=== PATIENT | female | born 1950 | race Caucasian/White ===

== ENCOUNTER 2023-06-13 06:04 | Day surgery (SDC) | payer MEDICARE ==
[2023-06-13] VITALS (9 sets, daily range): BP systolic 88–115; BP diastolic 43–59; PULSE 65–77; RESP 10–18; TEMP 97.8; O2SAT 95–98
[~2023-06-13] VITALS: Ht 162.6 cm; Wt 62.5 kg
[2023-06-13] MEDS ORDERED: cefazolin 2gm/D5W 100mL 100 ML IV ONE (06:30)
[2023-06-13] MEDS ORDERED: vancomycin/NS 1 GM ADD-VANTAGE 250 ML X 1 DOSE IV ONE (06:30)
[2023-06-13] MEDS ORDERED: ASCO100031 PO (06:36)
[2023-06-13] MEDS ORDERED: LEVO125T68 (06:36)
[2023-06-13] MEDS ORDERED: CHOL500049 PO (06:36)
[2023-06-13] MEDS ORDERED: DENOSUMAB (06:36)
[2023-06-13] MEDS ORDERED: ASPI-1265 PO (06:36)
[2023-06-13] MEDS ORDERED: PSYL0.4C2 PO (06:36)
[2023-06-13] MEDS ORDERED: GLUC1CAP36 PO (06:36)
[2023-06-13] MEDS ORDERED: SUMA50TA17 (06:36)
[2023-06-13] MEDS ORDERED: CALC-1215 PO (06:36)
[2023-06-13] MEDS ORDERED: ATOR40TA72 PO (06:36)
[2023-06-13 06:58] LABS: BASOPHILS % (AUTO) 0.6 % (0-1); EOSINOPHILS # (AUTO) 0.2 X10'3 (0-0.9); EOSINOPHILS % (AUTO) 4.5 % (0-6); HEMATOCRIT 39.6 % (35.0-45.0); HEMOGLOBIN 13.2 g/dl (12.0-16.0); LYMPHOCYTES # (AUTO) 2.1 X10'3 (1.1-4.8); LYMPHOCYTES % (AUTO) 44.2 % (21-51); MEAN CORPUSCULAR HEMOGLOBIN 30.4 PG (27.0-31.0); MEAN CORPUSCULAR HGB CONC 33.4 g/dL (33.0-36.5); MEAN PLATELET VOLUME 9.2 FL (7.4-10.4); MONOCYTES # (AUTO) 0.4 X10'3 (0-0.9); MONOCYTES % (AUTO) 9.1 % (2-12); NEUTROPHILS % (AUTO) 41.6 % (42-75); PLATELET COUNT 193 X10'3 (140-440); RED BLOOD COUNT 4.35 X10'6 (4.20-5.60); RED CELL DISTRIBUTION WIDTH 14.4 % (11.5-14.5); WHITE BLOOD COUNT 4.8 X10'3 (4.5-11.0)
[2023-06-13 07:07] LABS: ALBUMIN 4.1 G/DL (3.4-5.0); ANION GAP 11 (8-16); BLOOD UREA NITROGEN 15 MG/DL (7-18); BUN/CREATININE RATIO 18.8 (10.0-20.0); CALCIUM 9.3 MG/DL (8.5-10.1); CHLORIDE 105 MMOL/L (99-107); GLUCOSE 82 MG/DL (70-104); MAGNESIUM 2.1 MG/DL (1.5-2.4); POTASSIUM 3.6 MMOL/L (3.5-5.1); PROTHROMBIN TIME 10.3 SECONDS (9.0-12.0); SODIUM 141 MMOL/L (135-145); TOTAL CARBON DIOXIDE 25.1 MMOL/L (24-32); eCRCL 55 ML/MIN; eGFR 71 ML/MIN
[2023-06-13] MEDS ORDERED: vancomycin 1,000mg inj ONE (08:33)
[2023-06-13] MEDS ORDERED: midazolam 1 mg/ML 2ml injection ONE ×3 (08:33→10:02)
[2023-06-13] MEDS ORDERED: fentaNYL/PF 50MCG/1 ML 2ML syringe ONE ×2 (08:33→09:53)
[2023-06-13] MEDS ORDERED: iohexol 350 MG/ML 50ML vial IV ONE (08:33)
[2023-06-13] MEDS ORDERED: LIDOcaine 1% W/epiNEPHrine 1:100,000 20ml vial ONE ×2 (08:34→10:20)
[2023-06-13] MEDS ORDERED: proCHLORperazine 10 MG/2 ml inj ONE (10:02)
[2023-06-13] MEDS ORDERED: LORazepam 1 MG tablet PO PRN (12:00)
[2023-06-13] MEDS ORDERED: HYDROcodone/acetaminophen 5mg/325mg tablet PO PRN (12:00)
[2023-06-13] MEDS ORDERED: HYDROcodone/acetaminophen 10/325mg tab PO PRN (12:00)
[2023-06-13] MEDS ORDERED: normal saline 1000ml 1,000 ML IV SCH (12:05)
== END 2023-06-13 13:55 | disposition home or self-care (01) ==
LOC: SSTAY O 06:04
PROVIDERS: ATTEND Internal Medicine Cardiovascular Disease
DX: I49.5 Sick sinus syndrome (principal); I44.1 Atrioventricular block, second degree; E78.5 Hyperlipidemia, unspecified; I10 Essential (primary) hypertension; E03.9 Hypothyroidism, unspecified; G43.109 Migraine with aura, not intractable, without status migrainosus; M81.0 Age-related osteoporosis without current pathological fracture; E05.00 Thyrotoxicosis with diffuse goiter without thyrotoxic crisis or storm; Z86.711 Personal history of pulmonary embolism; Z79.899 Other long term (current) drug therapy; Z86.73 Personal history of transient ischemic attack (TIA), and cerebral infarction without residual deficits; Z79.82 Long term (current) use of aspirin; Z98.890 Other specified postprocedural states; Z88.5 Allergy status to narcotic agent; Z91.041 Radiographic dye allergy status; Z72.89 Other problems related to lifestyle; Z82.49 Family history of ischemic heart disease and other diseases of the circulatory system
CPT/HCPCS: 33208; 33286; 36415; 71045; 80048; 83735; 85025; 85610; 93005; 99152; 99153; C1785; C1898; J0780; J2250; J3010; J3370; J3490; J7030; Q9967; A4565